=== PATIENT | male | born 1960 | race Caucasian/White ===

== ENCOUNTER 2022-08-29 08:08 | Emergency (ER) | payer OTHER ==
[~2022-08-29] VITALS: Ht 182.9 cm; Wt 167.8 kg
[~2022-08-29 08:08] MED LIST: CETI5 PO; IBUP400 PO; LANS15EC PO; LOSARTAN POTAS100 MG PO
[2022-08-29 09:41] LABS: BASOPHILS ABSOLUTE AUTO 0.07 K/mm3 (0.00-0.23); BASOPHILS PERCENT AUTO 1 % (0-2); EOSINOPHILS ABSOLUTE AUTO 0.24 K/mm3 (0.00-0.68); EOSINOPHILS PERCENT AUTO 3 % (0-6); Hematocrit 46.8 % (37.0-53.0); Hemoglobin 14.8 g/dL (13.5-17.5); IMMATURE GRAN ABSOLUTE AUTO 0.04 K/mm3 (0.00-0.10); IMMATURE GRAN PERCENT AUTO 1 % (0-1); LYMPHOCYTES ABSOLUTE AUTO 2.35 K/mm3 (0.84-5.20); LYMPHOCYTES PERCENT AUTO 27 % (21-46); MONOCYTES PERCENT AUTO 14 % (4-13); Mean Corpuscular HGB 27.6 pg (26.0-34.0); Mean Corpuscular HGB Conc 31.6 g/dL (31.5-36.5); Mean Corpuscular Volume 87 fL (80-100); Mean Platelet Volume 10.8 fL (9.1-12.4); NEUTROPHILS ABSOLUTE AUTO 4.96 K/mm3 (1.96-9.15); NEUTROPHILS PERCENT AUTO 56 % (41-73); Platelet Count 159 K/mm3 (150-400); RDW Coefficient Variation 13.8 % (11.7-14.2); RDW Standard Deviation 44.4 fL (35.1-46.3); Red Blood Cell Count 5.37 M/mm3 (4.30-5.90); White Blood Cell Count 8.86 K/mm3 (4.00-11.30)
[2022-08-29 10:18] LABS: Albumin, Blood 3.1 g/dL (3.4-5.0); Albumin/Globulin Ratio 0.8 (0.8-1.8); Bilirubin, Total 0.6 mg/dL (0.1-1.0); Bun/Creatinine Ratio 24.3 (12.0-20.0); Calcium, Blood 8.8 mg/dL (8.5-10.1); Creatinine, Blood 0.74 mg/dL (0.60-1.20); Globulin, Blood 3.9 g/dL (2.2-4.0); Potassium, Blood 4.2 mmol/L (3.5-5.5)
[2022-08-29] MEDS ORDERED: ATEN25 (10:56)
[2022-08-29] MEDS ORDERED: METR500 PO (12:10)
[2022-08-29] MEDS ORDERED: CIPR500 PO (12:10)
== END 2022-08-29 12:17 | disposition home or self-care (01) ==
LOC: ER 08:08
PROVIDERS: Emergency Medicine
DX: K57.92 Diverticulitis of intestine, part unspecified, without perforation or abscess without bleeding (principal)
CPT/HCPCS: 36415; 80053; 83690; 85025

== ENCOUNTER → 2024-07-10 | Outpatient (CLI) | payer OTHER ==
[~2024-07-10] MED LIST changes: +ATEN25; +CHLO25B PO; +CIPR500 PO; +METR500 PO; +PRAV20 PO; +potassium chloride E
[2024-07-10 14:15] LABS: BASOPHILS ABSOLUTE AUTO 0.07 K/mm3 (0.00-0.23); BASOPHILS PERCENT AUTO 1 % (0-2); EOSINOPHILS PERCENT AUTO 3 % (0-6); Hematocrit 27.1 % (37.0-53.0); Hemoglobin 7.6 g/dL (13.5-17.5); IMMATURE GRAN ABSOLUTE AUTO 0.05 K/mm3 (0.00-0.10); IMMATURE GRAN PERCENT AUTO 1 % (0-1); LYMPHOCYTES ABSOLUTE AUTO 1.99 K/mm3 (0.84-5.20); LYMPHOCYTES PERCENT AUTO 23 % (21-46); MONOCYTES ABSOLUTE AUTO 0.82 K/mm3 (0.16-1.47); MONOCYTES PERCENT AUTO 9 % (4-13); Mean Corpuscular HGB 17.5 pg (26.0-34.0); Mean Corpuscular Volume 62 fL (80-100); Mean Platelet Volume 9.9 fL (9.1-12.4); NEUTROPHILS ABSOLUTE AUTO 5.51 K/mm3 (1.96-9.15); NEUTROPHILS PERCENT AUTO 63 % (41-73); Platelet Count 331 K/mm3 (150-400); RDW Coefficient Variation 18.9 % (11.7-14.2); RDW Standard Deviation 41.1 fL (35.1-46.3); Red Blood Cell Count 4.34 M/mm3 (4.30-5.90); White Blood Cell Count 8.74 K/mm3 (4.00-11.30)
[2024-07-10 14:27] LABS: Albumin, Blood 3.4 g/dL (3.4-5.0); Albumin/Globulin Ratio 0.9 (0.8-1.8); Bilirubin, Total 0.6 mg/dL (0.1-1.0); Bun/Creatinine Ratio 19.6 (12.0-20.0); Calcium, Blood 9.2 mg/dL (8.5-10.1); Creatinine, Blood 1.02 mg/dL (0.60-1.20); Globulin, Blood 3.6 g/dL (2.2-4.0); Potassium, Blood 4.2 mmol/L (3.5-5.5)
[2024-07-10 15:29] LABS: RETICULOCYTE ABSOLUTE 0.0805 M/mm3 (0.0200-0.1100); RETICULOCYTE COUNT PERCENT 1.83 % (0.50-2.50)
[2024-07-10 15:46] LABS: Percent Saturation 3.7 % (20.0-50.0)
== END ==
LOC: LAB 14:11 → LAB SHORT 14:11
PROVIDERS: Chiropractor
DX: D50.9 Iron deficiency anemia, unspecified (principal); R10.13 Epigastric pain
CPT/HCPCS: 80053; 82728; 83540; 83550; 83690; 84484; 85025; 85045; 85060

== ENCOUNTER 2024-08-26 11:38 | Day surgery (SDC) | payer OTHER ==
[~2024-08-26] VITALS: Ht 182.9 cm; Wt 132.6 kg
[~2024-08-26 11:38] MED LIST changes: +Lactated Ringer's 1,000 ML IV ONE
[2024-08-26] MEDS ORDERED: CARV6.25 (12:24)
[2024-08-26] MEDS ORDERED: PROTONIX (12:30)
[2024-08-26] MEDS ORDERED: FAMO40 (12:31)
[2024-08-26] MEDS ORDERED: propofoL 50 ML IV ONE (12:45)
[2024-08-26] MEDS ORDERED: Lidocaine 2% Viscous Soln 15 ML UDC ONE (13:09)
[2024-08-26] MEDS ORDERED: Lactated Ringer's 1,000 ML IV ONE (13:10)
[2024-08-26 13:46] VITALS: BP 144/86
== END 2024-08-26 13:55 | disposition home or self-care (01) ==
LOC: ORSCSDS 11:38
PROVIDERS: Internal Medicine Gastroenterology
PROC: 0DJD8ZZ Inspection of Lower Intestinal Tract, Via Natural or Artificial Opening Endoscopic (ICD-10-PCS; principal; 2024-08-26 13:00)
PROC: 0DJ08ZZ Inspection of Upper Intestinal Tract, Via Natural or Artificial Opening Endoscopic (ICD-10-PCS; principal; 2024-08-26 13:00)
DX: D50.9 Iron deficiency anemia, unspecified (principal); E11.9 Type 2 diabetes mellitus without complications; K57.30 Diverticulosis of large intestine without perforation or abscess without bleeding; K44.9 Diaphragmatic hernia without obstruction or gangrene; G47.33 Obstructive sleep apnea (adult) (pediatric); E78.5 Hyperlipidemia, unspecified; Z87.19 Personal history of other diseases of the digestive system; I10 Essential (primary) hypertension; E66.01 Morbid (severe) obesity due to excess calories; Z79.899 Other long term (current) drug therapy
CPT/HCPCS: 82947; A9270; J2704; J7120